=== PATIENT | male | born 1960 | race Caucasian/White ===

== ENCOUNTER 2022-07-17 14:37 | Inpatient (IN) ==
[2022-07-17] MEDS ORDERED: Cefepime 1 GM in Dextrose 1 GM/50 ML BAG IV ONE (14:56)
[2022-07-17] MEDS ORDERED: Vancomycin 1,000 MG in NS 0.9% 250 ml 250 ML IVPB ONE (14:57)
[2022-07-17] MEDS ORDERED: Lactated Ringers 1000 ml BAG 1,000 ML IV ONE ×4 (14:57→18:48)
[2022-07-17] MEDS ORDERED: ACETAMINOPHEN IV ONE (15:03)
[2022-07-17 15:14] LABS: Hematocrit 50.2 % (38-53); Hemoglobin 16.4 g/dL (13.2-16.3); Mean Corpuscular Hemoglobin 27.2 pg (27-33); Mean Corpuscular Hgb Conc 32.6 g/dL (31-36); Mean Corpuscular Volume 83.3 fL (80-97); Mean Platelet Volume 8.8 fL (7.5-11.2); Platelet Count 373 10^3/uL (150-450); Red Blood Count 6.03 10^6/uL (4.06-5.63); White Blood Count 28.4 10^3/uL (3.6-10.2)
[2022-07-17] MEDS ORDERED: Ciprofloxacin 0.3% OPTH.SOL BTL RIGHT EYE ONE (15:22)
[2022-07-17 15:26] LABS: Activated Partial Thrombo Time 28.5 seconds (26.0-38.0); INR 1.35 (0.88-1.18)
[2022-07-17 15:39] LABS: Albumin 3.5 g/dL (3.2-5.2); C Reactive Protein 375.63 mg/L (<8.01); Calcium 8.8 mg/dL (8.6-10.3); Creatinine, Serum 1.53 mg/dL (0.67-1.17); Globulin 3.6 g/dL (2-4); Potassium 4.4 mmol/L (3.5-5.0); Total Bilirubin 1.4 mg/dL (0.2-1.0); Total Protein 7.1 g/dL (6.4-8.9); eGFR CKD-EPI 51.7 (>60)
[2022-07-17] MEDS ORDERED: Iodixanol (CONTRAST) 320 MG/ML 100 ML SDV IV ONE (15:45)
[2022-07-17 15:50] LABS: PCO2 Arterial 30 mmHg (35-45); PO2 Arterial 124 mmHg (80-100)
[2022-07-17 16:26] LABS: ABS Basophils 0.1 10^3/uL (0.0-0.1); ABS Lymphocytes 1.3 10^3/uL (1.0-4.8); ABS Monocytes 1.4 10^3/uL (0.0-1.1); ABS Neutrophils 25.6 10^3/uL (1.5-7.6); ABS Nucleated RBC 0.03 10^3/ul; Lymphocyte % 4.7 %; Nucleated Red Blood Cells % 0.1 /100 WBC (0.0-0.4)
[2022-07-17 17:03] LABS: Urine Appearance Cloudy; Urine Bilirubin Negative (Negative); Urine Blood 2+ (Negative); Urine Color Yellow; Urine Glucose 1+(50 mg/dL) (Negative); Urine Ketones Negative (Negative); Urine Nitrite Positive (Negative); Urine Protein 2+(100 mg/dL) (Negative); Urine Specific Gravity 1.035 (1.002-1.030); Urine Urobilinogen Negative (Negative)
[2022-07-17 17:12] LABS: High Sensitivity Troponin 1 Hr 29 pg/mL (<20)
[2022-07-17 17:19] LABS: Urine Bacteria 1+ (Absent); Urine Red Blood Cell 2+(6-10/hpf) (Absent); Urine Squamous Epithelial Cell Present (Absent); Urine White Blood Cell 1+(6-10/hpf) (Absent)
[2022-07-17] MEDS ORDERED: Vancomycin per Pharmacy 1 EA NOTE FOLLOW UP SCH (19:00)
[2022-07-17] MEDS: Enoxaparin 30 MG/0.3 ML SYR SUBCUT SCH (22:44)
[2022-07-17 23:03] LABS: Albumin 2.9 g/dL (3.2-5.2); Creatinine, Serum 1.2 mg/dL (0.67-1.17); Globulin 2.8 g/dL (2-4); Potassium 3.9 mmol/L (3.5-5.0); Total Bilirubin 1.3 mg/dL (0.2-1.0); Total Protein 5.7 g/dL (6.4-8.9); eGFR CKD-EPI 69.2 (>60)
[2022-07-17] MEDS ORDERED: NS 0.45% KCl 20 Meq 1000 ml 1,000 ML IV SCH (23:45)
[2022-07-18] MEDS ORDERED: Sodium Chloride(INHALANT) 3% 4 ML NEB.SOLN INH ONE (00:03)
[2022-07-18] MEDS: Cefepime 2 GM in Dextrose 2 GM/50 ML BAG IV SCH ×2 (04:48→17:56)
[2022-07-18 04:59] LABS: ABS Monocytes 0.7 10^3/uL (0.0-1.1); ABS Neutrophils 15.4 10^3/uL (1.5-7.6); Eosinophil % 0.1 %; Hematocrit 43.1 % (38-53); Hemoglobin 14.1 g/dL (13.2-16.3); Lymphocyte % 5.8 %; Mean Corpuscular Hemoglobin 27.5 pg (27-33); Mean Corpuscular Hgb Conc 32.6 g/dL (31-36); Mean Corpuscular Volume 84.2 fL (80-97); Mean Platelet Volume 8.3 fL (7.5-11.2); Platelet Count 288 10^3/uL (150-450); Red Blood Count 5.12 10^6/uL (4.06-5.63); Red Cell Distribution Width 15.8 % (12-17); White Blood Count 17.1 10^3/uL (3.6-10.2)
[2022-07-18] MEDS ORDERED: NS 0.45% 1000 ml BAG 1,000 ML IV SCH ×2 (05:00→07:45)
[2022-07-18 05:42] LABS: Albumin 2.6 g/dL (3.2-5.2); Calcium 7.6 mg/dL (8.6-10.3); Creatinine, Serum 1.01 mg/dL (0.67-1.17); Globulin 2.5 g/dL (2-4); Magnesium 2.9 mg/dL (1.9-2.7); Total Bilirubin 1.3 mg/dL (0.2-1.0); Total Protein 5.1 g/dL (6.4-8.9); eGFR CKD-EPI 85.1 (>60)
[2022-07-18] MEDS: D5W 1000 ml BAG 1,000 ML IV SCH ×2 (10:19→23:50)
[2022-07-18] MEDS: Acetaminophen IV 1 GM/100ML 1,000 MG/100 ML BAG IV PRN (10:22)
[2022-07-18] MEDS ORDERED: Azithromycin 500 mg/250 ml NS 500 MG/250 ML BAG IVPB SCH (12:00)
[2022-07-18] MEDS ORDERED: Vancomycin 1000 MG in NS 0.9% 250 ML IVPB SCH (12:00)
[2022-07-18 13:18] LABS: Calcium 7.8 mg/dL (8.6-10.3); Creatinine, Serum 1.08 mg/dL (0.67-1.17); Potassium 4.2 mmol/L (3.5-5.0); TSH Ultra Thyroid Stim Horm 1.76 mcIU/mL (0.34-5.60); eGFR CKD-EPI 78.6 (>60)
[2022-07-18 13:29] LABS: Folate 9.62 ng/mL (5.90-24.80)
[2022-07-18 18:51] LABS: Calcium 7.8 mg/dL (8.6-10.3); Creatinine, Serum 1.09 mg/dL (0.67-1.17); Magnesium 3.1 mg/dL (1.9-2.7); Potassium 4.1 mmol/L (3.5-5.0); eGFR CKD-EPI 77.7 (>60)
[2022-07-18] MEDS: Enoxaparin 30 MG/0.3 ML SYR SUBCUT SCH (20:20)
[2022-07-18 21:21] LABS: Phosphorus 2.9 mg/dL (2.5-5.0)
[2022-07-18] MEDS: Petroleum Jelly 1.75 Oz (small jar) TOPICAL PRN (23:50)
[2022-07-19 00:45] LABS: Calcium 7.7 mg/dL (8.6-10.3); Creatinine, Serum 0.98 mg/dL (0.67-1.17); Potassium 3.9 mmol/L (3.5-5.0); eGFR CKD-EPI 88.3 (>60)
[2022-07-19 04:29] LABS: Hematocrit 38.2 % (38-53); Hemoglobin 12.3 g/dL (13.2-16.3); Mean Corpuscular Hemoglobin 27.4 pg (27-33); Mean Corpuscular Hgb Conc 32.3 g/dL (31-36); Mean Corpuscular Volume 84.9 fL (80-97); Mean Platelet Volume 8.8 fL (7.5-11.2); Platelet Count 237 10^3/uL (150-450); Red Cell Distribution Width 15.8 % (12-17); White Blood Count 12.7 10^3/uL (3.6-10.2)
[2022-07-19 05:07] LABS: Calcium 7.3 mg/dL (8.6-10.3); Creatinine, Serum 0.9 mg/dL (0.67-1.17); Magnesium 2.8 mg/dL (1.9-2.7); Phosphorus 1.7 mg/dL (2.5-5.0); eGFR CKD-EPI 97.8 (>60)
[2022-07-19] MEDS: Cefepime 2 GM in Dextrose 2 GM/50 ML BAG IV SCH (05:53)
[2022-07-19 06:38] LABS: ABS Eosinophils 0.1 10^3/uL (0.0-0.5); ABS Lymphocytes 0.8 10^3/uL (1.0-4.8); ABS Monocytes 0.5 10^3/uL (0.0-1.1); ABS Neutrophils 11.3 10^3/uL (1.5-7.6); ABS Nucleated RBC 0.01 10^3/ul; Eosinophil % 0.5 %; Lymphocyte % 6.5 %; Nucleated Red Blood Cells % 0.1 /100 WBC (0.0-0.4)
[2022-07-19] MEDS: Insulin GLARGINE 100 un/ml 10 ml VIAL SUBCUT SCH (08:24)
[2022-07-19] MEDS: Acetaminophen IV 1 GM/100ML 1,000 MG/100 ML BAG IV PRN ×2 (08:25→18:11)
[2022-07-19] MEDS ORDERED: D5W 1000 ml BAG 1,000 ML IV SCH (12:00)
[2022-07-19] MEDS: cefTRIAXone 2 gm/50 mL D5W 2 GM/50 ML BAG IV SCH (12:01)
[2022-07-19 14:48] LABS: Calcium 7.9 mg/dL (8.6-10.3); Creatinine, Serum 0.89 mg/dL (0.67-1.17); eGFR CKD-EPI 98.1 (>60)
[2022-07-19] MEDS: Enoxaparin 30 MG/0.3 ML SYR SUBCUT SCH (19:40)
[2022-07-19] MEDS: Potassium & Sodium Phos 250 mg = 1 PACKET PO SCH (20:55)
[2022-07-20 05:33] LABS: ABS Lymphocytes 0.9 10^3/uL (1.0-4.8); ABS Monocytes 0.8 10^3/uL (0.0-1.1); ABS Neutrophils 13.4 10^3/uL (1.5-7.6); ABS Nucleated RBC 0.01 10^3/ul; Eosinophil % 0.2 %; Hematocrit 38.4 % (38-53); Hemoglobin 12.3 g/dL (13.2-16.3); Lymphocyte % 6.1 %; Mean Corpuscular Hemoglobin 26.9 pg (27-33); Mean Corpuscular Hgb Conc 32.1 g/dL (31-36); Mean Corpuscular Volume 83.8 fL (80-97); Mean Platelet Volume 8.9 fL (7.5-11.2); Platelet Count 259 10^3/uL (150-450); Red Blood Count 4.58 10^6/uL (4.06-5.63); Red Cell Distribution Width 15.5 % (12-17); White Blood Count 15.1 10^3/uL (3.6-10.2)
[2022-07-20 06:01] LABS: Calcium 7.9 mg/dL (8.6-10.3); Creatinine, Serum 0.82 mg/dL (0.67-1.17); Magnesium 2.6 mg/dL (1.9-2.7); Potassium 4.3 mmol/L (3.5-5.0); eGFR CKD-EPI 100.6 (>60)
[2022-07-20] MEDS: D5W 1000 ml BAG 1,000 ML IV SCH ×2 (07:20→18:15)
[2022-07-20] MEDS: Insulin GLARGINE 100 un/ml 10 ml VIAL SUBCUT SCH (10:14)
[2022-07-20] MEDS ORDERED: Lactulose 300 ML for PR 200 GM/300 ML BTL PR ONE (11:00)
[2022-07-20] MEDS ORDERED: Vancomycin Trough Check NOTE FOLLOW UP ONE (11:30)
[2022-07-20] MEDS: Potassium & Sodium Phos 250 mg = 1 PACKET PO SCH ×2 (11:50→20:46)
[2022-07-20] MEDS ORDERED: Lactulose 30 ml UDC ONE (11:54)
[2022-07-20] MEDS: Lactulose 30 ml UDC PO SCH ×2 (12:56→20:45)
[2022-07-20] MEDS: cefTRIAXone 2 gm/50 mL D5W 2 GM/50 ML BAG IV SCH (14:23)
[2022-07-20] MEDS: Enoxaparin 30 MG/0.3 ML SYR SUBCUT SCH (20:46)
[2022-07-21] MEDS: D5W 1000 ml BAG 1,000 ML IV SCH ×3 (07:35→21:13)
[2022-07-21 09:00] LABS: Hemoglobin 11.9 g/dL (13.2-16.3); Mean Corpuscular Hemoglobin 26.9 pg (27-33); Mean Corpuscular Hgb Conc 32.1 g/dL (31-36); Mean Corpuscular Volume 83.6 fL (80-97); Mean Platelet Volume 8.9 fL (7.5-11.2); Platelet Count 227 10^3/uL (150-450); Red Blood Count 4.42 10^6/uL (4.06-5.63); Red Cell Distribution Width 15.5 % (12-17); White Blood Count 17.6 10^3/uL (3.6-10.2)
[2022-07-21] MEDS: Potassium & Sodium Phos 250 mg = 1 PACKET PO SCH (09:07)
[2022-07-21] MEDS: Insulin GLARGINE 100 un/ml 10 ml VIAL SUBCUT SCH (09:07)
[2022-07-21] MEDS: Lactulose 30 ml UDC PO SCH ×3 (09:07→20:57)
[2022-07-21 09:51] LABS: Calcium 7.4 mg/dL (8.6-10.3); Creatinine, Serum 0.97 mg/dL (0.67-1.17); Magnesium 2.5 mg/dL (1.9-2.7); eGFR CKD-EPI 89.4 (>60)
[2022-07-21 11:10] LABS: ABS Lymphocytes 1.1 10^3/uL (1.0-4.8); ABS Monocytes 1.3 10^3/uL (0.0-1.1); ABS Neutrophils 15.2 10^3/uL (1.5-7.6); Eosinophil % 0.1 %; Lymphocyte % 6.2 %
[2022-07-21] MEDS: cefTRIAXone 2 gm/50 mL D5W 2 GM/50 ML BAG IV SCH (14:21)
[2022-07-21] MEDS: Acetaminophen IV 1 GM/100ML 1,000 MG/100 ML BAG IV PRN ×2 (15:08→20:55)
[2022-07-21] MEDS: Enoxaparin 30 MG/0.3 ML SYR SUBCUT SCH (20:57)
[2022-07-22 04:56] LABS: Hematocrit 42.2 % (38-53); Hemoglobin 13.5 g/dL (13.2-16.3); Mean Corpuscular Hgb Conc 31.9 g/dL (31-36); Mean Corpuscular Volume 84.5 fL (80-97); Mean Platelet Volume 9.3 fL (7.5-11.2); Platelet Count 222 10^3/uL (150-450); Red Blood Count 4.99 10^6/uL (4.06-5.63); Red Cell Distribution Width 15.5 % (12-17); White Blood Count 22.1 10^3/uL (3.6-10.2)
[2022-07-22 04:57] LABS: ABS Basophils 0.1 10^3/uL (0.0-0.1); ABS Eosinophils 0.1 10^3/uL (0.0-0.5); ABS Lymphocytes 1.6 10^3/uL (1.0-4.8); ABS Monocytes 1.7 10^3/uL (0.0-1.1); ABS Neutrophils 18.6 10^3/uL (1.5-7.6); ABS Nucleated RBC 0.01 10^3/ul; Eosinophil % 0.6 %; Lymphocyte % 7.4 %; Nucleated Red Blood Cells % 0.1 /100 WBC (0.0-0.4)
[2022-07-22 05:23] LABS: CO2 Carbon Dioxide 23 mmol/L (22-32); Calcium 7.7 mg/dL (8.6-10.3); Chloride 108 mmol/L (101-111); Magnesium 2.6 mg/dL (1.9-2.7); Sodium 141 mmol/L (135-145)
[2022-07-22 05:29] LABS: Blood Urea Nitrogen 29 mg/dL (6-24); Creatinine, Serum 0.88 mg/dL (0.67-1.17); Glucose 202 mg/dL (70-100); eGFR CKD-EPI 98.4 (>60)
[2022-07-22 05:30] LABS: Anion Gap 10 mmol/L (2-16)
[2022-07-22] MEDS: Insulin GLARGINE 100 un/ml 10 ml VIAL SUBCUT SCH (07:54)
[2022-07-22] MEDS: Lactulose 30 ml UDC PO SCH ×3 (07:54→21:57)
[2022-07-22] MEDS: D5W 1000 ml BAG 1,000 ML IV SCH (09:28)
[2022-07-22] MEDS ORDERED: Lactulose 300 ML for PR 200 GM/300 ML BTL PR ONE (10:51)
[2022-07-22] MEDS: cefTRIAXone 2 gm/50 mL D5W 2 GM/50 ML BAG IV SCH (15:09)
[2022-07-22] MEDS: Acetaminophen IV 1 GM/100ML 1,000 MG/100 ML BAG IV PRN (16:34)
[2022-07-22] MEDS: Enoxaparin 30 MG/0.3 ML SYR SUBCUT SCH (21:57)
[2022-07-23 04:40] LABS: Hematocrit 36.8 % (38-53); Hemoglobin 12.1 g/dL (13.2-16.3); Mean Corpuscular Hemoglobin 27.6 pg (27-33); Mean Corpuscular Volume 83.8 fL (80-97); Mean Platelet Volume 9.2 fL (7.5-11.2); Platelet Count 289 10^3/uL (150-450); Red Blood Count 4.39 10^6/uL (4.06-5.63); Red Cell Distribution Width 15.3 % (12-17); White Blood Count 18.4 10^3/uL (3.6-10.2)
[2022-07-23 05:05] LABS: Albumin 2.2 g/dL (3.2-5.2); Calcium 7.5 mg/dL (8.6-10.3); Magnesium 2.1 mg/dL (1.9-2.7); Total Bilirubin 0.5 mg/dL (0.2-1.0)
[2022-07-23 05:08] LABS: ABS Eosinophils 0.1 10^3/uL (0.0-0.5); ABS Monocytes 1.1 10^3/uL (0.0-1.1); ABS Neutrophils 16.1 10^3/uL (1.5-7.6); ABS Nucleated RBC 0.01 10^3/ul; Eosinophil % 0.7 %; Lymphocyte % 5.5 %
[2022-07-23 05:11] LABS: Albumin/Globulin Ratio 0.7 (1-3); Creatinine, Serum 0.79 mg/dL (0.67-1.17); Total Protein 5.2 g/dL (6.4-8.9); eGFR CKD-EPI 101.7 (>60)
[2022-07-23] MEDS: Lactulose 30 ml UDC PO SCH ×3 (08:32→20:59)
[2022-07-23] MEDS: Insulin GLARGINE 100 un/ml 10 ml VIAL SUBCUT SCH (08:32)
[2022-07-23] MEDS: Acetaminophen IV 1 GM/100ML 1,000 MG/100 ML BAG IV PRN (12:18)
[2022-07-23] MEDS: cefTRIAXone 2 gm/50 mL D5W 2 GM/50 ML BAG IV SCH (15:06)
[2022-07-23] MEDS: Enoxaparin 30 MG/0.3 ML SYR SUBCUT SCH (20:59)
[2022-07-23] MEDS: Petroleum Jelly 1.75 Oz (small jar) TOPICAL PRN (22:55)
[2022-07-24] MEDS: Acetaminophen IV 1 GM/100ML 1,000 MG/100 ML BAG IV PRN (02:37)
[2022-07-24 04:37] LABS: Hematocrit 34.4 % (38-53); Hemoglobin 11.4 g/dL (13.2-16.3); Mean Corpuscular Hemoglobin 27.2 pg (27-33); Mean Corpuscular Hgb Conc 33.1 g/dL (31-36); Mean Corpuscular Volume 82.2 fL (80-97); Platelet Count 335 10^3/uL (150-450); Red Blood Count 4.18 10^6/uL (4.06-5.63); White Blood Count 21.9 10^3/uL (3.6-10.2)
[2022-07-24 05:09] LABS: ABS Lymphocytes 1.1 10^3/uL (1.0-4.8); ABS Monocytes 1.3 10^3/uL (0.0-1.1); ABS Neutrophils 19.5 10^3/uL (1.5-7.6); ABS Nucleated RBC 0.01 10^3/ul; Eosinophil % 0.1 %; Lymphocyte % 4.8 %
[2022-07-24 05:10] LABS: Calcium 7.4 mg/dL (8.6-10.3); Creatinine, Serum 0.83 mg/dL (0.67-1.17); Magnesium 2.2 mg/dL (1.9-2.7); Potassium 4.2 mmol/L (3.5-5.0); eGFR CKD-EPI 100.2 (>60)
[2022-07-24] MEDS: Lactulose 30 ml UDC PO SCH ×3 (07:58→21:42)
[2022-07-24] MEDS: Insulin GLARGINE 100 un/ml 10 ml VIAL SUBCUT SCH (08:15)
[2022-07-24] MEDS: cefTRIAXone 2 gm/50 mL D5W 2 GM/50 ML BAG IV SCH (15:53)
[2022-07-24] MEDS: Enoxaparin 30 MG/0.3 ML SYR SUBCUT SCH (21:42)
[2022-07-25] MEDS: Insulin GLARGINE 100 un/ml 10 ml VIAL SUBCUT SCH (08:53)
[2022-07-25] MEDS: Lactulose 30 ml UDC PO SCH ×3 (08:55→20:19)
[2022-07-25 10:58] LABS: ABS Basophils 0.1 10^3/uL (0.0-0.1); ABS Eosinophils 0.1 10^3/uL (0.0-0.5); ABS Monocytes 1.2 10^3/uL (0.0-1.1); ABS Neutrophils 17.3 10^3/uL (1.5-7.6); Eosinophil % 0.4 %; Hematocrit 35.8 % (38-53); Hemoglobin 11.4 g/dL (13.2-16.3); Lymphocyte % 5.1 %; Mean Corpuscular Hemoglobin 26.9 pg (27-33); Mean Corpuscular Hgb Conc 31.9 g/dL (31-36); Mean Corpuscular Volume 84.4 fL (80-97); Mean Platelet Volume 9.1 fL (7.5-11.2); Platelet Count 334 10^3/uL (150-450); Red Blood Count 4.24 10^6/uL (4.06-5.63); Red Cell Distribution Width 15.4 % (12-17); White Blood Count 19.7 10^3/uL (3.6-10.2)
[2022-07-25 11:44] LABS: Albumin 1.7 g/dL (3.2-5.2); CO2 Carbon Dioxide 22 mmol/L (22-32); Chloride 113 mmol/L (101-111); Sodium 142 mmol/L (135-145)
[2022-07-25 11:50] LABS: ALT 14 U/L (7-52); Albumin/Globulin Ratio 0.6 (1-3); Alkaline Phosphatase 119 U/L (35-149); Blood Urea Nitrogen 28 mg/dL (6-24); Creatinine, Serum 0.65 mg/dL (0.67-1.17); Globulin 2.9 g/dL (2-4); Glucose 161 mg/dL (70-100); Total Protein 4.6 g/dL (6.4-8.9); eGFR CKD-EPI 107.9 (>60)
[2022-07-25 11:53] LABS: Anion Gap 7 mmol/L (2-16)
[2022-07-25] MEDS ORDERED: Iohexol 350 (CONTRAST) 500 ML MDV IV ONE (11:55)
[2022-07-25 11:58] LABS: Calcium 6.2 mg/dL (8.6-10.3)
[2022-07-25 13:51] LABS: Magnesium 2.3 mg/dL (1.9-2.7); Potassium Redraw 4.7 mmol/L (3.5-5.0)
[2022-07-25] MEDS: cefTRIAXone 2 gm/50 mL D5W 2 GM/50 ML BAG IV SCH (15:14)
[2022-07-25] MEDS: Enoxaparin 30 MG/0.3 ML SYR SUBCUT SCH (20:19)
[2022-07-25] MEDS: Calcium Carbonate LIQ 1,250 mg/5 ml UDC PO SCH (20:19)
[2022-07-26 06:02] LABS: ABS Basophils 0.1 10^3/uL (0.0-0.1); ABS Eosinophils 0.1 10^3/uL (0.0-0.5); ABS Lymphocytes 1.1 10^3/uL (1.0-4.8); ABS Monocytes 1.2 10^3/uL (0.0-1.1); ABS Neutrophils 18.1 10^3/uL (1.5-7.6); ABS Nucleated RBC 0.01 10^3/ul; Eosinophil % 0.5 %; Hematocrit 35.5 % (38-53); Hemoglobin 11.4 g/dL (13.2-16.3); Lymphocyte % 5.5 %; Mean Corpuscular Hgb Conc 32.3 g/dL (31-36); Mean Corpuscular Volume 83.8 fL (80-97); Mean Platelet Volume 8.7 fL (7.5-11.2); Platelet Count 391 10^3/uL (150-450); Red Blood Count 4.23 10^6/uL (4.06-5.63); Red Cell Distribution Width 15.3 % (12-17); White Blood Count 20.6 10^3/uL (3.6-10.2)
[2022-07-26 06:40] LABS: Blood Urea Nitrogen 31 mg/dL (6-24); CO2 Carbon Dioxide 28 mmol/L (22-32); Calcium 7.5 mg/dL (8.6-10.3); Chloride 108 mmol/L (101-111); Creatinine, Serum 0.64 mg/dL (0.67-1.17); Glucose 204 mg/dL (70-100); Magnesium 2.4 mg/dL (1.9-2.7); Sodium 142 mmol/L (135-145); eGFR CKD-EPI 108.4 (>60)
[2022-07-26 06:43] LABS: Anion Gap 6 mmol/L (2-16)
[2022-07-26] MEDS: Acetaminophen IV 1 GM/100ML 1,000 MG/100 ML BAG IV PRN (08:15)
[2022-07-26] MEDS: Lactulose 30 ml UDC PO SCH ×3 (08:48→21:25)
[2022-07-26] MEDS: Petroleum Jelly 1.75 Oz (small jar) TOPICAL PRN (08:48)
[2022-07-26] MEDS: Insulin GLARGINE 100 un/ml 10 ml VIAL SUBCUT SCH (08:48)
[2022-07-26] MEDS: Calcium Carbonate LIQ 1,250 mg/5 ml UDC PO SCH (08:48)
[2022-07-26 09:20] LABS: Albumin 2.3 g/dL (3.2-5.2); Direct Bilirubin 0.1 mg/dL (0.03-0.18); Indirect Bilirubin 0.2 mg/dL (0.3-1.0); Potassium Redraw 4.4 mmol/L (3.5-5.0); Total Bilirubin 0.3 mg/dL (0.2-1.0)
[2022-07-26 09:26] LABS: Albumin/Globulin Ratio 0.6 (1-3); Globulin 3.8 g/dL (2-4); Total Protein 6.1 g/dL (6.4-8.9)
[2022-07-26] MEDS ORDERED: Albuterol/Ipratropium NEB.SOL (2.5/0.5 MG) 3 ML NEB.SOLN INH SCH (09:30)
[2022-07-26] MEDS ORDERED: Albuterol/Ipratropium NEB.SOL (2.5/0.5 MG) 3 ML NEB.SOLN INH PRN (09:45)
[2022-07-26] MEDS: cefTRIAXone 2 gm/50 mL D5W 2 GM/50 ML BAG IV SCH (15:46)
[2022-07-26] MEDS: Enoxaparin 30 MG/0.3 ML SYR SUBCUT SCH (21:26)
[2022-07-27 06:26] LABS: Hematocrit 34.3 % (38-53); Mean Corpuscular Hemoglobin 27.1 pg (27-33); Mean Corpuscular Volume 84.6 fL (80-97); Mean Platelet Volume 8.5 fL (7.5-11.2); Platelet Count 346 10^3/uL (150-450); Red Blood Count 4.06 10^6/uL (4.06-5.63); Red Cell Distribution Width 15.3 % (12-17); White Blood Count 17.5 10^3/uL (3.6-10.2)
[2022-07-27 07:00] LABS: Albumin 2.1 g/dL (3.2-5.2); Albumin/Globulin Ratio 0.6 (1-3); Calcium 7.5 mg/dL (8.6-10.3); Creatinine, Serum 0.66 mg/dL (0.67-1.17); Globulin 3.5 g/dL (2-4); Magnesium 2.3 mg/dL (1.9-2.7); Potassium 4.4 mmol/L (3.5-5.0); Total Bilirubin 0.3 mg/dL (0.2-1.0); Total Protein 5.6 g/dL (6.4-8.9); eGFR CKD-EPI 107.4 (>60)
[2022-07-27 08:22] LABS: ABS Eosinophils 0.1 10^3/uL (0.0-0.5); ABS Lymphocytes 1.1 10^3/uL (1.0-4.8); ABS Monocytes 0.9 10^3/uL (0.0-1.1); ABS Neutrophils 15.4 10^3/uL (1.5-7.6); ABS Nucleated RBC 0.01 10^3/ul; Eosinophil % 0.6 %; Lymphocyte % 6.2 %
[2022-07-27] MEDS ORDERED: Morphine 2 MG/ML SYRINGE IV PRN ×2 (09:00→10:30)
[2022-07-27] MEDS: Insulin GLARGINE 100 un/ml 10 ml VIAL SUBCUT SCH (09:37)
[2022-07-27] MEDS: Lactulose 30 ml UDC PO SCH (09:38)
[2022-07-27] MEDS: Calcium Carbonate LIQ 1,250 mg/5 ml UDC PO SCH (09:40)
[2022-07-27] MEDS ORDERED: Atropine 1 MG/ML INJ 1 ML VIAL IV PUSH PRN ×2 (10:30→11:27)
[2022-07-27] MEDS ORDERED: Lorazepam PYXIS KEY PRN (10:31)
[2022-07-27] MEDS ORDERED: LORazepam 2 mg VIAL 1 ml IV PUSH PRN ×2 (10:31→13:17)
[2022-07-27] MEDS: Morphine 2 MG/ML SYRINGE IV PRN ×10 (11:20→23:05)
[2022-07-27 12:29] VITALS: BP 104/74
[2022-07-27] MEDS: LORazepam 2 mg VIAL 1 ml IV PUSH PRN ×4 (16:24→23:05)
[2022-07-27] MEDS: Atropine 1% (ORAL/SL) 15 ML BTL SL PRN ×2 (20:51→23:06)
[2022-07-28] MEDS: Morphine 2 MG/ML SYRINGE IV PRN (00:02)
[2022-07-29] MEDS ORDERED: LORazepam 2 mg VIAL 1 ml ONE (16:17)
== END 2022-07-28 01:04 | disposition expired | DRG 720 ==
LOC: ED 14:37 → SUATTDRO 19:22 → EDHOLD 19:22 → ICU 07-18 09:30
PROVIDERS: ADMIT Internal Medicine; ATTEND Internal Medicine Critical Care Medicine